=== PATIENT | male | born 1955 | race Two or more races ===

== ENCOUNTER 2017-04-03 18:54 | Inpatient (IN) | payer MEDICAID, OTHER ==
[~2017-04-03] VITALS: Ht 172.7 cm; Wt 81.2 kg
[2017-04-03 19:30] VITALS: BP 109/65
[2017-04-03 20:11] LABS: MEAN CORPUSCULAR HEMOGLOBIN 32.2 PG (27.0-31.0); MEAN CORPUSCULAR HGB CONC 33.7 G/DL (32.0-36.0); MEAN CORPUSCULAR VOLUME 95 FL (80-99); MEAN PLATELET VOLUME 9.6 FL (6.5-10.1); PLATELET COUNT 141 K/UL (150-450); RED CELL DISTRIBUTION WIDTH 12.5 % (11.6-14.8)
[2017-04-03] MEDS ORDERED: cefTRIAXone 1 GM in NS 55 ML IVPB ONE (20:30)
[2017-04-03 20:33] LABS: WHITE BLOOD COUNT 26.6 K/UL (4.8-10.8)
[2017-04-03 20:44] LABS: REFLEX LACTIC ACID YES OR NO YES
[2017-04-03] MEDS ORDERED: Vancomycin 1.5gm/D5W 250ml 250 ML IVPB ONE (21:00)
[2017-04-03 21:03] LABS: ALANINE AMINOTRANSFERASE 24 U/L (12-78); ALBUMIN/GLOBULIN RATIO 0.8 (1.0-2.7); ANION GAP 13 (5-15); ASPARTATE AMINO TRANSFERASE 44 U/L (15-37); CALCIUM 9.6 MG/DL (8.5-10.1); CARBON DIOXIDE 25 MMOL/L (21-32); CHLORIDE 94 MMOL/L (98-107); CKMB 5.5 NG/ML (0.0-3.6); GLOMERULAR FILTRATION RATE 21.2 mL/min (>60); LIPASE 83 U/L (73-393); POTASSIUM 3.3 MMOL/L (3.5-5.1); SODIUM 132 MMOL/L (136-145); TOTAL PROTEIN 7.9 G/DL (6.4-8.2)
[2017-04-03 21:24] LABS: BAND NEUTROPHILS % (MANUAL) 10 % (0-8); LYMPHOCYTES % (MANUAL) 5 % (20-45); NEUTROPHILS % (MANUAL) 78 % (45-75); TOTAL CELLS COUNTED 100
[2017-04-03 21:25] LABS: BASOPHILS % (MANUAL) 0 % (0-2); EOSINOPHILS % (MANUAL) 0 % (0-3); PLATELET ESTIMATE DECREASED; PLATELET MORPHOLOGY NORMAL; TOXIC GRANULATION 1+
[2017-04-03 21:30] VITALS: BP 102/70
[2017-04-03 21:44] LABS: APPEARANCE,URINE TURBID; KETONES,URINE 1+ (NEGATIVE); LEUKOCYTE ESTERASE ,URINE 3+ (NEGATIVE); NITRITE,URINE POSITIVE (NEGATIVE); PH,URINE 5 (4.5-8.0); PROTEIN,URINE 3+ (NEGATIVE); UROBILINOGEN,URINE 4 MG/DL (0.0-1.0)
[2017-04-03] MEDS ORDERED: Miralax 17gm pkt ORAL PRN (21:45)
[2017-04-03] MEDS ORDERED: Morphine Sulfate 2mg/ml Inj IVP PRN (21:45)
[2017-04-03] MEDS ORDERED: Albuterol/Ipratropium 3ml neb HHN PRN (21:45)
[2017-04-03] MEDS ORDERED: Nitroglycerin Subl 0.4mg tab SL PRN (21:45)
[2017-04-03 21:48] LABS: ICTOTEST POSITIVE
[2017-04-03 21:50] LABS: RBC,URINE TNTC /HPF (0 - 0); WBC,URINE TNTC /HPF (0 - 0)
[2017-04-03 21:51] LABS: BACTERIA,URINE MANY /HPF; SQUAMOUS EPITHELIAL CELL,UR FEW /LPF (NONE/OCC)
[2017-04-03 21:52] LABS: AMORPHOUS SEDIMENT,UR MANY /LPF
--- NOTE | 2017-04-03 22:10 | Emergency Room Report ---
History of Present Illness General Chief Complaint: Generalized Weakness Source: Family Member Present Illness HPI Patient presents with complaints of general weakness Patient's son reports that over the past few days the patient has been weaker than usual he noticed that his skin is becoming mottled he described it as essentially discolored Patient himself has had urinary problems including burning with urination Denies any chest pain They noticed that his breathing was also little bit fast and upon arrival the patient is hypotensive and tachycardic Denies any recent travel denies any vomiting or diarrhea denies any other back or flank pain Allergies: Coded Allergies: No Known Allergies (Unverified , 04/03/17) Patient History Past Medical History: see triage record Pertinent Family History: none Reviewed Nursing Documentation: PMH: Agreed, PSxH: Agreed Nursing Documentation-PMH Hx Hypertension: Yes Review of Systems All Other Systems: negative except mentioned in HPI Physical Exam Vital Signs Date Time Temp Pulse Resp B/P (MAP) Pulse Ox O2 Delivery O2 Flow Rate FiO2 04/03/17 19:06 97.3 78 16 88/54 96 Room Air Sp02 EP Interpretation: reviewed, normal General Appearance: mild distress Head: normocephalic, atraumatic Eyes: bilateral eye PERRL, bilateral eye EOMI ENT: hearing grossly normal, TMs + canals normal, uvula midline, dry mucus membranes Neck: full range of motion, supple, no meningismus, no bony tend Respiratory: lungs clear, normal breath sounds, no rhonchi, no respiratory distress, no retraction, no accessory muscle use Cardiovascular #1: normal peripheral pulses, regular rate, rhythm, no edema, no gallop, no JVD, no murmur Gastrointestinal: normal bowel sounds, non tender, soft, no mass, no organomegaly, non-distended, no guarding, no hernia, no pulsatile mass, no rebound Genitourinary: no CVA tenderness Neurologic: oriented x3, responsive, 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, motor strength/ tone normal, sensory intact Psychiatric: mood/affect normal Skin: other - Patient has a blotchy appearance to the skin mottled in appearance Lymphatic: normal inspection, no adenopathy Procedures Critical Care Time Critical Care Time 45 minutes for multiple re\re evaluations initial critical presentation concerning for acute respiratory/left any presentation multiple re\re evaluations not including any procedural time,, Medical Decision Making Diagnostic Impression: Primary Impression: Severe sepsis Additional Impressions: UTI (urinary tract infection) Elevated troponin ER Course Patient concerning upon arrival sepsis severe sepsis, UTI Meningitis cardiac pathology all entertained Patient initiated on aggressive IV hydration Broad-spectrum antibiotic provided Urine sample did show infectious pathology CT imaging also shows inflammation around the bladder There is an aneurysm however no obvious signs of leak Patient is extremely concerning and admitted to monitored bed for further care , , Labs Test 04/03/17 19:40 04/03/17 21:00 04/03/17 21:10 White Blood Count 26.6 K/UL (4.8-10.8) Red Blood Count 5.20 M/UL (4.70-6.10) Hemoglobin 16.7 G/DL (14.2-18.0) Hematocrit 49.6 % (42.0-52.0) Mean Corpuscular Volume 95 FL (80-99) Mean Corpuscular Hemoglobin 32.2 PG (27.0-31.0) Mean Corpuscular Hemoglobin Concent 33.7 G/DL (32.0-36.0) Red Cell Distribution Width 12.5 % (11.6-14.8) Platelet Count 141 K/UL (150-450) Mean Platelet Volume 9.6 FL (6.5-10.1) Neutrophils (%) (Auto) % (45.0-75.0) Lymphocytes (%) (Auto) % (20.0-45.0) Monocytes (%) (Auto) % (1.0-10.0) Eosinophils (%) (Auto) % (0.0-3.0) Basophils (%) (Auto) % (0.0-2.0) Differential Total Cells Counted 100 Neutrophils % (Manual) 78 % (45-75) Lymphocytes % (Manual) 5 % (20-45) Monocytes % (Manual) 7 % (1-10) Eosinophils % (Manual) 0 % (0-3) Basophils % (Manual) 0 % (0-2) Band Neutrophils 10 % (0-8) Toxic Granulation 1+ Platelet Estimate Decreased Platelet Morphology Normal Red Blood Cell Morphology Normal Sodium Level 132 MMOL/L (136-145) Potassium Level 3.3 MMOL/L (3.5-5.1) Chloride Level 94 MMOL/L (98-107) Carbon Dioxide Level 25 MMOL/L (21-32) Anion Gap 13 (5-15) Blood Urea Nitrogen 34 mg/dL (7-18) Creatinine 3.0 MG/DL (0.55-1.30) Estimat Glomerular Filtration Rate 21.2 mL/min (>60) Glucose Level 167 MG/DL (74-106) Lactic Acid Level 3.90 mmol/L (0.66-2.22) 2.70 mmol/L (0.66-2.22) Calcium Level 9.6 MG/DL (8.5-10.1) Total Bilirubin 0.8 MG/DL (0.2-1.0) Aspartate Amino Transf (AST/SGOT) 44 U/L (15-37) Alanine Aminotransferase (ALT/SGPT) 24 U/L (12-78) Alkaline Phosphatase 78 U/L (46-116) Total Creatine Kinase > 1000 U/L (26-308) Creatine Kinase MB 5.5 NG/ML (0.0-3.6) Creatine Kinase MB Relative Index 0.0 Troponin I 0.431 ng/mL (0.000-0.056) Pro-B-Type Natriuretic Peptide 8579 (0-125) Total Protein 7.9 G/DL (6.4-8.2) Albumin 3.4 G/DL (3.4-5.0) Globulin 4.5 g/dL Albumin/Globulin Ratio 0.8 (1.0-2.7) Lipase 83 U/L (73-393) Urine Color Brown Urine Appearance Turbid Urine pH 5 (4.5-8.0) Urine Specific [place] 1.020 (1.005-1.035) Urine Protein 3+ (NEGATIVE) Urine Glucose (UA) 1+ (NEGATIVE) Urine Ketones 1+ (NEGATIVE) Urine Occult Blood 5+ (NEGATIVE) Urine Nitrite Positive (NEGATIVE) Urine Bilirubin 2+ (NEGATIVE) Urine Ictotest Positive Urine Urobilinogen 4 MG/DL (0.0-1.0) Urine Leukocyte Esterase 3+ (NEGATIVE) Urine RBC Tntc /HPF (0 - 0) Urine WBC Tntc /HPF (0 - 0) Urine Squamous Epithelial Cells Few /LPF (NONE/OCC) Urine Amorphous Sediment Many /LPF (NONE) Urine Bacteria Many /HPF (NONE) EKG Diagnostic Results Rate: normal Rhythm: NSR ST Segments: no acute changes Rhythm Strip Diag. Results EP Interpretation: yes Rate: 78 Rhythm: NSR, no PVC's, no ectopy Chest X-Ray Diagnostic Results Chest X-Ray Diagnostic Results : Chest X-Ray Ordered: Yes # of Views/Limited/Complete: 1 View Indication: Chest Pain EP Interpretation: Yes Interpretation: no consolidation, no effusion, no pneumothorax Impression: No acute disease CT/MRI/US Diagnostic Results CT/MRI/US Diagnostic Results : Impression ct abd/pelvis:Impression: 6.1 x 5.6 cm fusiform abdominal aortic aneurysm. No evidence of rupture or leakage. Thickwalled bladder, prominent seminal vesicles, and prominent prostate with surrounding inflammatory change. Findings are suspicious for cystitis, possible prostatitis, and inflammation of the seminal vesicles. Gas bubbles within the bladder, raises concern for emphysematous cystitis. Alternatively, this could be due to recent instrumentation. Correlate with clinical history Lower pole renal cyst. Exiting subcentimeter low-attenuation renal lesion too small to characterize. No further followup necessary Other findings as noted, including equivocal sliding-type small hiatal hernia, posterior dependent pulmonary atelectatic changes and subpleural blebs This agrees with the preliminary interpretation provided overnight by Dr. Mendoza Last Vital Signs Date Time Temp Pulse Resp B/P (MAP) Pulse Ox O2 Delivery O2 Flow Rate FiO2 04/03/17 19:30 97.3 91 23 109/65 100 Room Air Status: improved Disposition: ADMITTED INPATIENT Condition: Critical Referrals: [employer] [facility] (PCP) JAZZ DAVIS D.O. Apr 03, 2017 22:10
[2017-04-03 22:45] VITALS: BP 114/77
[2017-04-03 23:30] VITALS: BP 124/79
[2017-04-04 01:43] LABS: MAGNESIUM 1.4 MG/DL (1.5-2.4); URIC ACID 6.6 MG/DL (2.6-7.2)
[2017-04-04 02:34] LABS: PHOSPHORUS 4.2 MG/DL (2.5-4.9)
[2017-04-04 02:43] LABS: OSMOLALITY SERUM 296 mOsm/kg (297-317)
[2017-04-04 04:00] VITALS: BP 138/78
[2017-04-04] MEDS ORDERED: COREG6.25 MG ORAL (06:35)
[2017-04-04] MEDS ORDERED: LOSARTAN POTAS100 MG ORAL (06:35)
[2017-04-04 08:25] LABS: MEAN CORPUSCULAR HEMOGLOBIN 33.1 PG (27.0-31.0); MEAN CORPUSCULAR HGB CONC 35.4 G/DL (32.0-36.0); MEAN CORPUSCULAR VOLUME 93 FL (80-99); MEAN PLATELET VOLUME 10.3 FL (6.5-10.1); PLATELET COUNT 114 K/UL (150-450); RED BLOOD COUNT 4.33 M/UL (4.70-6.10); RED CELL DISTRIBUTION WIDTH 12.4 % (11.6-14.8); WHITE BLOOD COUNT 16.3 K/UL (4.8-10.8)
[2017-04-04 08:30] VITALS: BP 142/87
[2017-04-04] MEDS ORDERED: Cefepime HCl 2 GM in D5W 110 ML IV SCH (09:00)
[2017-04-04] MEDS: Heparin 5000 units/ml inj SUBQ SCH ×2 (09:00→21:00)
[2017-04-04 09:09] LABS: ALANINE AMINOTRANSFERASE 20 U/L (12-78); ALBUMIN/GLOBULIN RATIO 0.7 (1.0-2.7); ANION GAP 12 (5-15); ASPARTATE AMINO TRANSFERASE 62 U/L (15-37); CALCIUM 7.7 MG/DL (8.5-10.1); CARBON DIOXIDE 21 MMOL/L (21-32); CHLORIDE 99 MMOL/L (98-107); CREATININE 1.6 MG/DL (0.55-1.30); GLOMERULAR FILTRATION RATE 43.9 mL/min (>60); POTASSIUM 2.9 MMOL/L (3.5-5.1); SODIUM 132 MMOL/L (136-145); TOTAL PROTEIN 6.1 G/DL (6.4-8.2)
--- NOTE | 2017-04-04 09:09 | Diagnostic Imaging Report ---
Indication: Abdominal pain Technique: Spiral acquisitions obtained through the abdomen and pelvis. No oral contrast utilized, per emergency room physician request No IV contrast utilized, per referring physician request.. Multiplanar reconstructions were generated. Total dose length product 75 mGycm. CTDIvol(s) 14 mGy. Dose reduction achieved using automated exposure control Comparison: None Findings: There is a fusiform abdominal aortic aneurysm. This measures is 6.1 cm transverse by 5.6 cm AP by 8.8 cm in length. It demonstrates some mural calcification. It demonstrates a 17 mm long neck. There is no evidence of rupture or leakage. The aneurysm terminates just above the aortic bifurcation. The common iliac arteries are ectatic but not frankly aneurysmal. Patency is indeterminate in the absence of IV contrast. The bladder demonstrates wall thickening. 2 tiny gas bubbles are seen within the bladder There is considerable infiltration of the fat surrounding the bladder and the seminal vesicles and to lesser extent the prostate. The seminal vesicles are somewhat prominent. The prostate is enlarged, measuring 5 cm transverse by 4.7 cm AP. Lack of IV contrast limits assessment of the solid organs. The liver, gallbladder, bile ducts, pancreas, spleen, adrenals, right kidney are unremarkable. The left kidney demonstrates a 2.9 cm lower pole cyst. There is also a left exophytic subcentimeter low-attenuation renal lesion which is too small to characterize in the interpolar region. There are abundant prominent but not frankly enlarged retroperitoneal lymph nodes. No pelvic mass or adenopathy. No evidence of diverticulosis or diverticulitis is demonstrated. The appendix is normal. No small bowel distention. No free or loculated intraperitoneal air or fluid is evident. There is equivocally a small sliding-type hiatal hernia. The stomach and duodenum are unremarkable. The lung bases demonstrate posterior dependent atelectatic changes and small subpleural blebs. The bones are unremarkable. Impression: 6.1 x 5.6 cm fusiform abdominal aortic aneurysm. No evidence of rupture or leakage. Thickwalled bladder, prominent seminal vesicles, and prominent prostate with surrounding inflammatory change. Findings are suspicious for cystitis, possible prostatitis, and inflammation of the seminal vesicles. Gas bubbles within the bladder, raises concern for emphysematous cystitis. Alternatively, this could be due to recent instrumentation. Correlate with clinical history Lower pole renal cyst. Exiting subcentimeter low-attenuation renal lesion too small to characterize. No further followup necessary Other findings as noted, including equivocal sliding-type small hiatal hernia, posterior dependent pulmonary atelectatic changes and subpleural blebs This agrees with the preliminary interpretation provided overnight by Dr. Mendoza The CT scanner at [facility] is accredited by the [employer] and the scans are performed using protocols designed to limit radiation exposure to as low as reasonably achievable to attain images of sufficient resolution adequate for diagnostic evaluation.
[2017-04-04 10:10] LABS: BAND NEUTROPHILS % (MANUAL) 9 % (0-8); BASOPHILS % (MANUAL) 0 % (0-2); EOSINOPHILS % (MANUAL) 0 % (0-3); LYMPHOCYTES % (MANUAL) 7 % (20-45); NEUTROPHILS % (MANUAL) 81 % (45-75); PLATELET ESTIMATE ADEQUATE; PLATELET MORPHOLOGY NORMAL; TOTAL CELLS COUNTED 100
--- NOTE | 2017-04-04 10:55 | Diagnostic Imaging Report ---
Indication: Chest pain Technique: One view of the chest Comparison: none Findings: Lungs and pleural spaces are clear. Heart size is normal. The aorta is somewhat tortuous Impression: No acute process
--- NOTE | 2017-04-04 11:24 | Consultation ---
History of Present Illness General Date patient seen: Apr 04, 2017 Time patient seen: 11:23 Chief Complaint: Generalized Weakness Reason for Consultation: UTI, sepsis Present Illness HPI ID Consult Note 61 y/o M with xh of HTN presents to ED on 04/03 with 2-3 days of fever, feeling unwell, Dysuria, bowel abnormalities (Constipation/diarrhea), SOB and difficulty urinating. Per son, no hx of prior UTIs or recent urologic procedures , no recent abx. Afebrile upon admission but now febrile to 101.5. Leukocytosis up to 26.6 upon admission, now down to 16. BP stable. U/a with significant pyuria. CT abd/p with finding of cystitis, prostatitis and possible emphysematous cystitis. Started on IV Vanco and Cefepime. Patient is singaporean speaking; obtain hx from son at bedside. Denies cough, DIAZ, rash, n/v. Allergies: Coded Allergies: No Known Allergies (Unverified , 04/03/17) Medication History Scheduled Carvedilol (Coreg), 6.25 MG ORAL DAILY, (Reported) Losartan Potassium (Losartan Potassium), Unknown Dose ORAL DAILY, (Reported) Patient History Healthcare decision maker Resuscitation status Full Code Advanced Directive on File Patient History Narrative PMHx: as above SHx: no contributory FHx: non contributory Review of Systems All Other Systems: negative except mentioned in HPI Physical Exam Physical Exam Narrative General Appearance: ill appearing but not toxic looking Lines, tubes and drains: peripheral HEENT: normocephalic, atraumatic, no oral lesions, PERRL Neck: supple Respiratory/Chest: chest wall non-tender, lungs clear Abdomen: normal bowel sounds, S+D, NT, ND, No CVA tenderness Skin: clammy and hot, no rash Last 24 Hour Vital Signs Date Time Temp Pulse Resp B/P (MAP) Pulse Ox O2 Delivery O2 Flow Rate FiO2 04/04/17 08:30 97.7 108 18 142/87 96 Room Air 04/04/17 04:00 98.2 94 20 138/78 97 Room Air 04/04/17 04:00 92 04/04/17 00:00 93 04/03/17 23:30 97.2 94 21 124/79 98 Room Air 04/03/17 23:30 96 04/03/17 23:20 97.3 90 22 114/77 99 Room Air 04/03/17 22:45 97.3 90 22 114/77 99 Room Air 04/03/17 21:30 97.3 89 25 102/70 100 Room Air 04/03/17 19:30 97.3 91 23 109/65 100 Room Air 04/03/17 19:06 97.3 78 16 88/54 96 Room Air Intake and Output 04/04/17 04/05/17 19:00 07:00 Intake Total 100 ml Balance 100 ml Intake IV Total 100 ml Laboratory Tests Test 04/03/17 19:40 04/03/17 21:00 04/03/17 21:10 04/04/17 07:30 White Blood Count 26.6 K/UL (4.8-10.8) *H 16.3 K/UL (4.8-10.8) H Red Blood Count 5.20 M/UL (4.70-6.10) 4.33 M/UL (4.70-6.10) L Hemoglobin 16.7 G/DL (14.2-18.0) 14.3 G/DL (14.2-18.0) Hematocrit 49.6 % (42.0-52.0) 40.4 % (42.0-52.0) L Mean Corpuscular Volume 95 FL (80-99) 93 FL (80-99) Mean Corpuscular Hemoglobin 32.2 PG (27.0-31.0) H 33.1 PG (27.0-31.0) H Mean Corpuscular Hemoglobin Concent 33.7 G/DL (32.0-36.0) 35.4 G/DL (32.0-36.0) Red Cell Distribution Width 12.5 % (11.6-14.8) 12.4 % (11.6-14.8) Platelet Count 141 K/UL (150-450) L 114 K/UL (150-450) L Mean Platelet Volume 9.6 FL (6.5-10.1) 10.3 FL (6.5-10.1) H Neutrophils (%) (Auto) % (45.0-75.0) % (45.0-75.0) Lymphocytes (%) (Auto) % (20.0-45.0) % (20.0-45.0) Monocytes (%) (Auto) % (1.0-10.0) % (1.0-10.0) Eosinophils (%) (Auto) % (0.0-3.0) % (0.0-3.0) Basophils (%) (Auto) % (0.0-2.0) % (0.0-2.0) Differential Total Cells Counted 100 100 Neutrophils % (Manual) 78 % (45-75) H 81 % (45-75) H Lymphocytes % (Manual) 5 % (20-45) L 7 % (20-45) L Monocytes % (Manual) 7 % (1-10) 3 % (1-10) Eosinophils % (Manual) 0 % (0-3) 0 % (0-3) Basophils % (Manual) 0 % (0-2) 0 % (0-2) Band Neutrophils 10 % (0-8) H 9 % (0-8) H Toxic Granulation 1+ Platelet Estimate Decreased L Adequate Platelet Morphology Normal Normal Red Blood Cell Morphology Normal Normal Sodium Level 132 MMOL/L (136-145) L 132 MMOL/L (136-145) L Potassium Level 3.3 MMOL/L (3.5-5.1) L 2.9 MMOL/L (3.5-5.1) L Chloride Level 94 MMOL/L (98-107) L 99 MMOL/L (98-107) Carbon Dioxide Level 25 MMOL/L (21-32) 21 MMOL/L (21-32) Anion Gap 13 (5-15) 12 (5-15) Blood Urea Nitrogen 34 mg/dL (7-18) H 31 mg/dL (7-18) H Creatinine 3.0 MG/DL (0.55-1.30) H 1.6 MG/DL (0.55-1.30) H Estimat Glomerular Filtration Rate 21.2 mL/min (>60) 43.9 mL/min (>60) Glucose Level 167 MG/DL (74-106) H 106 MG/DL (74-106) Osmolality 296 mOsm/kg (297-317) L Lactic Acid Level 3.90 mmol/L (0.66-2.22) H 2.70 mmol/L (0.66-2.22) H Uric Acid 6.6 MG/DL (2.6-7.2) Calcium Level 9.6 MG/DL (8.5-10.1) 7.7 MG/DL (8.5-10.1) L Phosphorus Level 4.2 MG/DL (2.5-4.9) Magnesium Level 1.4 MG/DL (1.5-2.4) L Total Bilirubin 0.8 MG/DL (0.2-1.0) 0.5 MG/DL (0.2-1.0) Aspartate Amino Transf (AST/SGOT) 44 U/L (15-37) H 62 U/L (15-37) H Alanine Aminotransferase (ALT/SGPT) 24 U/L (12-78) 20 U/L (12-78) Alkaline Phosphatase 78 U/L (46-116) 64 U/L (46-116) Total Creatine Kinase 1494 U/L (26-308) H Creatine Kinase MB 5.5 NG/ML (0.0-3.6) H Creatine Kinase MB Relative Index 0.0 Troponin I 0.431 ng/mL (0.000-0.056) Pro-B-Type Natriuretic Peptide 8579 (0-125) H Total Protein 7.9 G/DL (6.4-8.2) 6.1 G/DL (6.4-8.2) L Albumin 3.4 G/DL (3.4-5.0) 2.6 G/DL (3.4-5.0) L Globulin 4.5 g/dL 3.5 g/dL Albumin/Globulin Ratio 0.8 (1.0-2.7) L 0.7 (1.0-2.7) L Lipase 83 U/L (73-393) Free Thyroxine 1.47 NG/DL (0.10-1.46) H Urine Color Brown Urine Appearance Turbid Urine pH 5 (4.5-8.0) Urine Specific [place] 1.020 (1.005-1.035) Urine Protein 3+ (NEGATIVE) H Urine Glucose (UA) 1+ (NEGATIVE) H Urine Ketones 1+ (NEGATIVE) H Urine Occult Blood 5+ (NEGATIVE) H Urine Nitrite Positive (NEGATIVE) H Urine Bilirubin 2+ (NEGATIVE) H Urine Ictotest Positive Urine Urobilinogen 4 MG/DL (0.0-1.0) H Urine Leukocyte Esterase 3+ (NEGATIVE) H Urine RBC Tntc /HPF (0 - 0) H Urine WBC Tntc /HPF (0 - 0) H Urine Squamous Epithelial Cells Few /LPF (NONE/OCC) Urine Amorphous Sediment Many /LPF (NONE) H Urine Bacteria Many /HPF (NONE) H Urine Eosinophils None seen Urine Osmolality 384 mOsm/kg (429-449) L Urine Random Sodium 15 MEQ/L (20-110) L Urine Random Chloride 31 mmol/L (55-125) L Urine Potassium Timed 92 mmol/L (12-62) H reviewed Height (Feet): 5 Height (Inches): 8.00 Weight (Pounds): 179 Medications Current Medications Medications (Trade) Dose Ordered Sig/Howard Route PRN Reason Start Time Stop Time Status Last Admin Dose Admin Acetaminophen (Tylenol) 650 mg Q4H PRN ORAL fever 04/03/17 21:45 05/03/17 21:44 Albuterol/ Ipratropium (DuoNeb 0.5-3(2.5)mg/3ml) 3 ml Q4H PRN HHN Shortness of Breath 04/03/17 21:45 04/08/17 21:44 Cefepime HCl 2 gm/ Dextrose 110 ml @ 220 mls/hr Q24H IV 04/04/17 09:00 04/11/17 08:59 04/04/17 10:28 Dextrose (Dextrose 50%) STAT PRN IV Hypoglycemia 04/03/17 21:45 05/03/17 21:44 Heparin Sodium (Porcine) (Heparin 5000 units/ml) 5,000 units EVERY 12 HOURS SUBQ 04/04/17 09:00 05/04/17 08:59 Magnesium Sulfate 100 ml @ 100 mls/hr Q1H IVPB 04/04/17 10:45 04/04/17 13:44 04/04/17 11:00 Morphine Sulfate (Morphine Sulfate) 2 mg Q4H PRN IVP Moderate Pain (Pain Scale 4-6) 04/03/17 21:45 04/10/17 21:44 Nitroglycerin (Ntg) 0.4 mg Every 5 Minutes PRN SL Prn Chest Pain 04/03/17 21:45 05/03/17 21:44 Ondansetron HCl (Zofran) 4 mg Q6H PRN IVP Nausea & Vomiting 04/03/17 21:45 05/03/17 21:44 Polyethylene Glycol (Miralax) 17 gm DAILYPRN PRN ORAL Constipation 04/03/17 21:45 05/03/17 21:44 Potassium Chloride (K-Dur) 40 meq ONCE ONCE ORAL 04/04/17 11:30 04/04/17 11:31 Sodium Chloride 1,000 ml @ 100 mls/hr Q10H IVLG 04/04/17 00:21 05/04/17 00:20 04/04/17 11:05 Temazepam (Restoril) 15 mg HSPRN PRN ORAL Insomnia 04/03/17 21:45 04/10/17 21:44 Vancomycin HCl (Vanco rx to dose) 1 ea DAILY PRN MISC PRN RX PROTOCOL 04/03/17 22:15 05/03/17 22:14 Vancomycin HCl 1 gm/Dextrose 275 ml @ 183.3 mls/ hr Q24H IVPB 04/04/17 21:00 04/09/17 20:59 Assessment/Plan Assessment/Plan Abx: IV Vanco 04/03- IV Ceftriaxone x1 04/03 Cefepime 04/04- Assesment: Severe Sepsis 2ry to UTI and possible prostatitis; ? emphysematous cystitis mild hypotension- improved with fluids -U/a significant pyuria (WBC TNTC), nit +, leuk +3; Ucx pending -Bcx pending -CT abd/p: 6.1 x 5.6 cm fusiform abdominal aortic aneurysm. No evidence of rupture or leakage. Thick walled bladder, prominent seminal vesicles, and prominent prostate with surrounding inflammatory change. Findings are suspicious for cystitis, possible prostatitis, and inflammation of the seminal vesicles. Gas bubbles within the bladder, raises concern for emphysematous cystitis. Lower pole renal cyst. Exiting subcentimeter low-attenuation renal lesion too small to characterize. No further followup necessary -CXR no acute process Fever/Leukocytosis- 2ry to above; improving Thrombocytopenia, worsening- 2ry to sepsis Mild AST elevation, worsening HILARIO, improving Lactic acidosis, improving Plan: -Switch Cefepime to IV Zosyn given findings of possible emphysematous cystitis -if further fevers, HD decompensation, switch to Meropenem for broader abx coverage -Urology evaluation given CT findings and ? emphysematous cystitis -Will continue IV Vancomycin for the next 24-48hrs pending Bcx -f/u cx -Monitor CBC/BMP, temperatures Discussed with RN and Dr Esquivel. Shona Jamison M.D. Apr 04, 2017 11:24
[2017-04-04 11:38] VITALS: BP 144/87
--- NOTE | 2017-04-04 13:17 | History and Physical ---
History of Present Illness General Date patient seen: Apr 03, 2017 Reason for Hospitalization: Generalized Weakness Present Illness HPI 61 year old male with hx of HTN came from home brought by son c/o fever for 2x days, right leg numbness, and difficulty urinating. Patient AOx4, VSS, ambulatory with steady gait, no s/s of resp distress noted at this time. Patient is burmese speaking. Son at the bed site helps with translation. Pt was diagnosed to have sepsis and admitted to telemetry for further management. Allergies: Coded Allergies: No Known Allergies (Unverified , 04/03/17) Medication History Scheduled Carvedilol (Coreg), 6.25 MG ORAL DAILY, (Reported) Losartan Potassium (Losartan Potassium), Unknown Dose ORAL DAILY, (Reported) Patient History Healthcare decision maker Resuscitation status Full Code Advanced Directive on File Review of Systems All Other Systems: negative except mentioned in HPI Physical Exam General Appearance: WD/WN Lines, tubes and drains: peripheral HEENT: normocephalic, atraumatic Neck: non-tender, normal alignment Respiratory/Chest: chest wall non-tender, lungs clear Abdomen: normal bowel sounds Genitourinary/Rectal: normal genital exam Last 24 Hour Vital Signs Date Time Temp Pulse Resp B/P (MAP) Pulse Ox O2 Delivery O2 Flow Rate FiO2 04/04/17 11:38 101.5 122 22 144/87 94 Room Air 04/04/17 08:30 97.7 108 18 142/87 96 Room Air 04/04/17 04:00 98.2 94 20 138/78 97 Room Air 04/04/17 04:00 92 04/04/17 00:00 93 04/03/17 23:30 97.2 94 21 124/79 98 Room Air 04/03/17 23:30 96 04/03/17 23:20 97.3 90 22 114/77 99 Room Air 04/03/17 22:45 97.3 90 22 114/77 99 Room Air 04/03/17 21:30 97.3 89 25 102/70 100 Room Air 04/03/17 19:30 97.3 91 23 109/65 100 Room Air 04/03/17 19:06 97.3 78 16 88/54 96 Room Air Intake and Output 04/04/17 04/05/17 19:00 07:00 Intake Total 100 ml Balance 100 ml Intake IV Total 100 ml Laboratory Tests Test 04/03/17 19:40 04/03/17 21:00 04/03/17 21:10 04/04/17 07:30 White Blood Count 26.6 K/UL (4.8-10.8) *H 16.3 K/UL (4.8-10.8) H Red Blood Count 5.20 M/UL (4.70-6.10) 4.33 M/UL (4.70-6.10) L Hemoglobin 16.7 G/DL (14.2-18.0) 14.3 G/DL (14.2-18.0) Hematocrit 49.6 % (42.0-52.0) 40.4 % (42.0-52.0) L Mean Corpuscular Volume 95 FL (80-99) 93 FL (80-99) Mean Corpuscular Hemoglobin 32.2 PG (27.0-31.0) H 33.1 PG (27.0-31.0) H Mean Corpuscular Hemoglobin Concent 33.7 G/DL (32.0-36.0) 35.4 G/DL (32.0-36.0) Red Cell Distribution Width 12.5 % (11.6-14.8) 12.4 % (11.6-14.8) Platelet Count 141 K/UL (150-450) L 114 K/UL (150-450) L Mean Platelet Volume 9.6 FL (6.5-10.1) 10.3 FL (6.5-10.1) H Neutrophils (%) (Auto) % (45.0-75.0) % (45.0-75.0) Lymphocytes (%) (Auto) % (20.0-45.0) % (20.0-45.0) Monocytes (%) (Auto) % (1.0-10.0) % (1.0-10.0) Eosinophils (%) (Auto) % (0.0-3.0) % (0.0-3.0) Basophils (%) (Auto) % (0.0-2.0) % (0.0-2.0) Differential Total Cells Counted 100 100 Neutrophils % (Manual) 78 % (45-75) H 81 % (45-75) H Lymphocytes % (Manual) 5 % (20-45) L 7 % (20-45) L Monocytes % (Manual) 7 % (1-10) 3 % (1-10) Eosinophils % (Manual) 0 % (0-3) 0 % (0-3) Basophils % (Manual) 0 % (0-2) 0 % (0-2) Band Neutrophils 10 % (0-8) H 9 % (0-8) H Toxic Granulation 1+ Platelet Estimate Decreased L Adequate Platelet Morphology Normal Normal Red Blood Cell Morphology Normal Normal Sodium Level 132 MMOL/L (136-145) L 132 MMOL/L (136-145) L Potassium Level 3.3 MMOL/L (3.5-5.1) L 2.9 MMOL/L (3.5-5.1) L Chloride Level 94 MMOL/L (98-107) L 99 MMOL/L (98-107) Carbon Dioxide Level 25 MMOL/L (21-32) 21 MMOL/L (21-32) Anion Gap 13 (5-15) 12 (5-15) Blood Urea Nitrogen 34 mg/dL (7-18) H 31 mg/dL (7-18) H Creatinine 3.0 MG/DL (0.55-1.30) H 1.6 MG/DL (0.55-1.30) H Estimat Glomerular Filtration Rate 21.2 mL/min (>60) 43.9 mL/min (>60) Glucose Level 167 MG/DL (74-106) H 106 MG/DL (74-106) Osmolality 296 mOsm/kg (297-317) L Lactic Acid Level 3.90 mmol/L (0.66-2.22) H 2.70 mmol/L (0.66-2.22) H Uric Acid 6.6 MG/DL (2.6-7.2) Calcium Level 9.6 MG/DL (8.5-10.1) 7.7 MG/DL (8.5-10.1) L Phosphorus Level 4.2 MG/DL (2.5-4.9) Magnesium Level 1.4 MG/DL (1.5-2.4) L Total Bilirubin 0.8 MG/DL (0.2-1.0) 0.5 MG/DL (0.2-1.0) Aspartate Amino Transf (AST/SGOT) 44 U/L (15-37) H 62 U/L (15-37) H Alanine Aminotransferase (ALT/SGPT) 24 U/L (12-78) 20 U/L (12-78) Alkaline Phosphatase 78 U/L (46-116) 64 U/L (46-116) Total Creatine Kinase 1494 U/L (26-308) H Creatine Kinase MB 5.5 NG/ML (0.0-3.6) H Creatine Kinase MB Relative Index 0.0 Troponin I 0.431 ng/mL (0.000-0.056) Pro-B-Type Natriuretic Peptide 8579 (0-125) H Total Protein 7.9 G/DL (6.4-8.2) 6.1 G/DL (6.4-8.2) L Albumin 3.4 G/DL (3.4-5.0) 2.6 G/DL (3.4-5.0) L Globulin 4.5 g/dL 3.5 g/dL Albumin/Globulin Ratio 0.8 (1.0-2.7) L 0.7 (1.0-2.7) L Lipase 83 U/L (73-393) Free Thyroxine 1.47 NG/DL (0.10-1.46) H Urine Color Brown Urine Appearance Turbid Urine pH 5 (4.5-8.0) Urine Specific [place] 1.020 (1.005-1.035) Urine Protein 3+ (NEGATIVE) H Urine Glucose (UA) 1+ (NEGATIVE) H Urine Ketones 1+ (NEGATIVE) H Urine Occult Blood 5+ (NEGATIVE) H Urine Nitrite Positive (NEGATIVE) H Urine Bilirubin 2+ (NEGATIVE) H Urine Ictotest Positive Urine Urobilinogen 4 MG/DL (0.0-1.0) H Urine Leukocyte Esterase 3+ (NEGATIVE) H Urine RBC Tntc /HPF (0 - 0) H Urine WBC Tntc /HPF (0 - 0) H Urine Squamous Epithelial Cells Few /LPF (NONE/OCC) Urine Amorphous Sediment Many /LPF (NONE) H Urine Bacteria Many /HPF (NONE) H Urine Eosinophils None seen Urine Osmolality 384 mOsm/kg (429-449) L Urine Random Sodium 15 MEQ/L (20-110) L Urine Random Chloride 31 mmol/L (55-125) L Urine Potassium Timed 92 mmol/L (12-62) H Height (Feet): 5 Height (Inches): 8.00 Weight (Pounds): 179 Medications Current Medications Medications (Trade) Dose Ordered Sig/Howard Route PRN Reason Start Time Stop Time Status Last Admin Dose Admin Acetaminophen (Tylenol) 650 mg Q4H PRN ORAL fever 04/03/17 21:45 05/03/17 21:44 04/04/17 11:25 Albuterol/ Ipratropium (DuoNeb 0.5-3(2.5)mg/3ml) 3 ml Q4H PRN HHN Shortness of Breath 04/03/17 21:45 04/08/17 21:44 Cefepime HCl 2 gm/ Dextrose 110 ml @ 220 mls/hr Q24H IV 04/04/17 09:00 04/11/17 08:59 Future Hold 04/04/17 10:28 Dextrose (Dextrose 50%) STAT PRN IV Hypoglycemia 04/03/17 21:45 05/03/17 21:44 Heparin Sodium (Porcine) (Heparin 5000 units/ml) 5,000 units EVERY 12 HOURS SUBQ 04/04/17 09:00 05/04/17 08:59 Magnesium Sulfate 100 ml @ 100 mls/hr Q1H IVPB 04/04/17 10:45 04/04/17 13:44 04/04/17 12:14 Metronidazole 100 ml @ 100 mls/hr ONCE ONCE IVPB 04/04/17 12:30 04/04/17 13:29 Morphine Sulfate (Morphine Sulfate) 2 mg Q4H PRN IVP Moderate Pain (Pain Scale 4-6) 04/03/17 21:45 04/10/17 21:44 Nitroglycerin (Ntg) 0.4 mg Every 5 Minutes PRN SL Prn Chest Pain 04/03/17 21:45 05/03/17 21:44 Ondansetron HCl (Zofran) 4 mg Q6H PRN IVP Nausea & Vomiting 04/03/17 21:45 05/03/17 21:44 Piperacillin Sod/ Tazobactam Sod 3.375 gm/Dextrose 110 ml @ 27.5 mls/hr Q8HR@0200,1000,1800 IVPB 04/04/17 18:00 04/11/17 17:59 Polyethylene Glycol (Miralax) 17 gm DAILYPRN PRN ORAL Constipation 04/03/17 21:45 05/03/17 21:44 Sodium Chloride 1,000 ml @ 100 mls/hr Q10H IVLG 04/04/17 00:21 05/04/17 00:20 04/04/17 11:05 Temazepam (Restoril) 15 mg HSPRN PRN ORAL Insomnia 04/03/17 21:45 04/10/17 21:44 Vancomycin HCl (Vanco rx to dose) 1 ea DAILY PRN MISC PRN RX PROTOCOL 04/03/17 22:15 05/03/17 22:14 Vancomycin HCl 1 gm/Dextrose 275 ml @ 183.3 mls/ hr Q24H IVPB 04/04/17 21:00 04/09/17 20:59 Assessment/Plan Problem List: (1) Severe sepsis ICD Codes: A41.9 - Sepsis, unspecified organism; R65.20 - Severe sepsis without septic shock SNOMED: 17282623 (2) UTI (urinary tract infection) ICD Codes: N39.0 - Urinary tract infection, site not specified SNOMED: 07377171, 636398490 (3) Elevated troponin ICD Codes: R74.8 - Abnormal levels of other serum enzymes; R65.20 - Severe sepsis without septic shock SNOMED: 067629736, 819318236 Assessment/Plan IV abx aden culture cardio to see symptomatic treatment. ANAID GRIMALDO Apr 04, 2017 13:17
--- NOTE | 2017-04-04 13:18 | Pulmonology Progress Note ---
Assessment/Plan Problems: (1) Severe sepsis (2) UTI (urinary tract infection) (3) Elevated troponin Assessment/Plan wbc lower check cultures CT abdomen reviewed, Urology called cardio and vascular to see. Subjective ROS Limited/Unobtainable: No Interval Events: feeling better Constitutional: Reports: no symptoms HEENT: Repors: no symptoms Respiratory: Reports: no symptoms Allergies: Coded Allergies: No Known Allergies (Unverified , 04/03/17) Objective Last 24 Hour Vital Signs Date Time Temp Pulse Resp B/P (MAP) Pulse Ox O2 Delivery O2 Flow Rate FiO2 04/04/17 11:38 101.5 122 22 144/87 94 Room Air 04/04/17 08:30 97.7 108 18 142/87 96 Room Air 04/04/17 04:00 98.2 94 20 138/78 97 Room Air 04/04/17 04:00 92 04/04/17 00:00 93 04/03/17 23:30 97.2 94 21 124/79 98 Room Air 04/03/17 23:30 96 04/03/17 23:20 97.3 90 22 114/77 99 Room Air 04/03/17 22:45 97.3 90 22 114/77 99 Room Air 04/03/17 21:30 97.3 89 25 102/70 100 Room Air 04/03/17 19:30 97.3 91 23 109/65 100 Room Air 04/03/17 19:06 97.3 78 16 88/54 96 Room Air Intake and Output 04/04/17 04/05/17 19:00 07:00 Intake Total 100 ml Balance 100 ml Intake IV Total 100 ml General Appearance: WD/WN HEENT: normocephalic, atraumatic Respiratory/Chest: chest wall non-tender, lungs clear Cardiovascular: normal peripheral pulses, normal rate Abdomen: normal bowel sounds, soft, non tender Genitourinary: normal external genitalia Extremities: no clubbing Skin: no rash Laboratory Tests 04/03/17 19:40: White Blood Count 26.6*H, Red Blood Count 5.20, Hemoglobin 16.7, Hematocrit 49.6 , Mean Corpuscular Volume 95, Mean Corpuscular Hemoglobin 32.2H, Mean Corpuscular Hemoglobin Concent 33.7, Red Cell Distribution Width 12.5, Platelet Count 141L, Mean Platelet Volume 9.6, Neutrophils (%) (Auto) , Lymphocytes (%) ( Auto) , Monocytes (%) (Auto) , Eosinophils (%) (Auto) , Basophils (%) (Auto) , Differential Total Cells Counted 100, Neutrophils % (Manual) 78H, Lymphocytes % (Manual) 5L, Monocytes % (Manual) 7, Eosinophils % (Manual) 0, Basophils % ( Manual) 0, Band Neutrophils 10H, Toxic Granulation 1+, Platelet Estimate DecreasedL, Platelet Morphology Normal, Red Blood Cell Morphology Normal, Sodium Level 132L, Potassium Level 3.3L, Chloride Level 94L, Carbon Dioxide Level 25, Anion Gap 13, Blood Urea Nitrogen 34H, Creatinine 3.0H, Estimat Glomerular Filtration Rate 21.2, Glucose Level 167H, Osmolality 296L, Lactic Acid Level 3.90H, Uric Acid 6.6, Calcium Level 9.6, Phosphorus Level 4.2, Magnesium Level 1.4L, Total Bilirubin 0.8, Aspartate Amino Transf (AST/SGOT) 44H , Alanine Aminotransferase (ALT/SGPT) 24, Alkaline Phosphatase 78, Total Creatine Kinase 1494H, Creatine Kinase MB 5.5H, Creatine Kinase MB Relative Index 0.0, Troponin I 0.431H, Pro-B-Type Natriuretic Peptide 8579H, Total Protein 7.9, Albumin 3.4, Globulin 4.5, Albumin/Globulin Ratio 0.8L, Lipase 83, Free Thyroxine 1.47H 04/03/17 21:00: Lactic Acid Level 2.70H 04/03/17 21:10: Urine Color Brown, Urine Appearance Turbid, Urine pH 5, Urine Specific [place] 1.020, Urine Protein 3+H, Urine Glucose (UA) 1+H, Urine Ketones 1+H, Urine Occult Blood 5+H, Urine Nitrite PositiveH, Urine Bilirubin 2+H, Urine Ictotest Positive, Urine Urobilinogen 4H, Urine Leukocyte Esterase 3+H, Urine RBC TntcH, Urine WBC TntcH, Urine Squamous Epithelial Cells Few, Urine Amorphous Sediment ManyH, Urine Bacteria ManyH, Urine Eosinophils None seen, Urine Osmolality 384L , Urine Random Sodium 15L, Urine Random Chloride 31L, Urine Potassium Timed 92H 04/04/17 07:30: White Blood Count 16.3H, Red Blood Count 4.33L, Hemoglobin 14.3, Hematocrit 40.4L, Mean Corpuscular Volume 93, Mean Corpuscular Hemoglobin 33.1H, Mean Corpuscular Hemoglobin Concent 35.4, Red Cell Distribution Width 12.4, Platelet Count 114L, Mean Platelet Volume 10.3H, Neutrophils (%) (Auto) , Lymphocytes (% ) (Auto) , Monocytes (%) (Auto) , Eosinophils (%) (Auto) , Basophils (%) (Auto) , Differential Total Cells Counted 100, Neutrophils % (Manual) 81H, Lymphocytes % (Manual) 7L, Monocytes % (Manual) 3, Eosinophils % (Manual) 0, Basophils % ( Manual) 0, Band Neutrophils 9H, Platelet Estimate Adequate, Platelet Morphology Normal, Red Blood Cell Morphology Normal, Sodium Level 132L, Potassium Level 2.9L, Chloride Level 99, Carbon Dioxide Level 21, Anion Gap 12, Blood Urea Nitrogen 31H, Creatinine 1.6H, Estimat Glomerular Filtration Rate 43.9, Glucose Level 106, Calcium Level 7.7L, Total Bilirubin 0.5, Aspartate Amino Transf (AST/ SGOT) 62H, Alanine Aminotransferase (ALT/SGPT) 20, Alkaline Phosphatase 64, Total Protein 6.1L, Albumin 2.6L, Globulin 3.5, Albumin/Globulin Ratio 0.7L Current Medications Medications (Trade) Dose Ordered Sig/Howard Route PRN Reason Start Time Stop Time Status Last Admin Dose Admin Acetaminophen (Tylenol) 650 mg Q4H PRN ORAL fever 04/03/17 21:45 05/03/17 21:44 04/04/17 11:25 Albuterol/ Ipratropium (DuoNeb 0.5-3(2.5)mg/3ml) 3 ml Q4H PRN HHN Shortness of Breath 04/03/17 21:45 04/08/17 21:44 Cefepime HCl 2 gm/ Dextrose 110 ml @ 220 mls/hr Q24H IV 04/04/17 09:00 04/11/17 08:59 Future Hold 04/04/17 10:28 Dextrose (Dextrose 50%) STAT PRN IV Hypoglycemia 04/03/17 21:45 05/03/17 21:44 Heparin Sodium (Porcine) (Heparin 5000 units/ml) 5,000 units EVERY 12 HOURS SUBQ 04/04/17 09:00 05/04/17 08:59 Magnesium Sulfate 100 ml @ 100 mls/hr Q1H IVPB 04/04/17 10:45 04/04/17 13:44 04/04/17 12:14 Metronidazole 100 ml @ 100 mls/hr ONCE ONCE IVPB 04/04/17 12:30 04/04/17 13:29 Morphine Sulfate (Morphine Sulfate) 2 mg Q4H PRN IVP Moderate Pain (Pain Scale 4-6) 04/03/17 21:45 04/10/17 21:44 Nitroglycerin (Ntg) 0.4 mg Every 5 Minutes PRN SL Prn Chest Pain 04/03/17 21:45 05/03/17 21:44 Ondansetron HCl (Zofran) 4 mg Q6H PRN IVP Nausea & Vomiting 04/03/17 21:45 05/03/17 21:44 Piperacillin Sod/ Tazobactam Sod 3.375 gm/Dextrose 110 ml @ 27.5 mls/hr Q8HR@0200,1000,1800 IVPB 04/04/17 18:00 04/11/17 17:59 Polyethylene Glycol (Miralax) 17 gm DAILYPRN PRN ORAL Constipation 04/03/17 21:45 05/03/17 21:44 Sodium Chloride 1,000 ml @ 100 mls/hr Q10H IVLG 04/04/17 00:21 05/04/17 00:20 04/04/17 11:05 Temazepam (Restoril) 15 mg HSPRN PRN ORAL Insomnia 04/03/17 21:45 04/10/17 21:44 Vancomycin HCl (Vanco rx to dose) 1 ea DAILY PRN MISC PRN RX PROTOCOL 04/03/17 22:15 05/03/17 22:14 Vancomycin HCl 1 gm/Dextrose 275 ml @ 183.3 mls/ hr Q24H IVPB 04/04/17 21:00 04/09/17 20:59 ANAID GRIMALDO Apr 04, 2017 13:18
--- NOTE | 2017-04-04 15:15 | GI Initial Consult Note ---
Tanja Larsen N.PJune 04/04/17 1515: History of Present Illness General Date patient seen: Apr 04, 2017 Time patient seen: 10:00 Reason for Hospitalization: Generalized Weakness Referring physician: ANAID GRIMALDO Reason for Consultation: DIARRHEA Present Illness HPI 61 year old male with hx of HTN came from home brought by son c/o fever for 2x days, right leg numbness, and difficulty urinating. Patient AOx4, VSS, ambulatory with steady gait, no s/s of resp distress noted at this time. Patient is kosovan speaking. Son at the bed site helps with translation. Pt was diagnosed to have sepsis and admitted to telemetry for further management. GI consulted for diarrhea. HPI as noted above. Pt seen on floor, awake A&Ox4 NAD with no active s/sx of N/V. C/o of generalized weakness. Presents today with leukocytosis, diarrhea, 6x5 fusiform AAA, and elevated creatinine. No history of endoscopic or colonoscopies. Home Meds Reported Medications Losartan Potassium (LOSARTAN POTASSIUM) 100 Mg Tablet, ORAL DAILY, TAB 04/04/17 Carvedilol (Coreg) 6.25 Mg Tablet, 6.25 MG ORAL DAILY, TAB 04/04/17 Med list reviewed/reconciled: Yes Allergies: Coded Allergies: No Known Allergies (Unverified , 04/03/17) Patient History Limited by: medical condition History Provided By: Medical Record [facility] Narrative Healthcare decision maker Resuscitation status Full Code Advanced Directive on File Social History: Denies: smoking, alcohol use, drug use, other Review of Systems All Other Systems: limited Physical Exam Vital Signs Date Time Temp Pulse Resp B/P (MAP) Pulse Ox O2 Delivery O2 Flow Rate FiO2 04/03/17 19:06 97.3 78 16 88/54 96 Room Air Sp02 EP Interpretation: reviewed Labs Laboratory Tests Test 04/03/17 19:40 04/03/17 21:00 04/03/17 21:10 04/04/17 07:30 White Blood Count 26.6 K/UL (4.8-10.8) *H 16.3 K/UL (4.8-10.8) H Red Blood Count 5.20 M/UL (4.70-6.10) 4.33 M/UL (4.70-6.10) L Hemoglobin 16.7 G/DL (14.2-18.0) 14.3 G/DL (14.2-18.0) Hematocrit 49.6 % (42.0-52.0) 40.4 % (42.0-52.0) L Mean Corpuscular Volume 95 FL (80-99) 93 FL (80-99) Mean Corpuscular Hemoglobin 32.2 PG (27.0-31.0) H 33.1 PG (27.0-31.0) H Mean Corpuscular Hemoglobin Concent 33.7 G/DL (32.0-36.0) 35.4 G/DL (32.0-36.0) Red Cell Distribution Width 12.5 % (11.6-14.8) 12.4 % (11.6-14.8) Platelet Count 141 K/UL (150-450) L 114 K/UL (150-450) L Mean Platelet Volume 9.6 FL (6.5-10.1) 10.3 FL (6.5-10.1) H Neutrophils (%) (Auto) % (45.0-75.0) % (45.0-75.0) Lymphocytes (%) (Auto) % (20.0-45.0) % (20.0-45.0) Monocytes (%) (Auto) % (1.0-10.0) % (1.0-10.0) Eosinophils (%) (Auto) % (0.0-3.0) % (0.0-3.0) Basophils (%) (Auto) % (0.0-2.0) % (0.0-2.0) Differential Total Cells Counted 100 100 Neutrophils % (Manual) 78 % (45-75) H 81 % (45-75) H Lymphocytes % (Manual) 5 % (20-45) L 7 % (20-45) L Monocytes % (Manual) 7 % (1-10) 3 % (1-10) Eosinophils % (Manual) 0 % (0-3) 0 % (0-3) Basophils % (Manual) 0 % (0-2) 0 % (0-2) Band Neutrophils 10 % (0-8) H 9 % (0-8) H Toxic Granulation 1+ Platelet Estimate Decreased L Adequate Platelet Morphology Normal Normal Red Blood Cell Morphology Normal Normal Sodium Level 132 MMOL/L (136-145) L 132 MMOL/L (136-145) L Potassium Level 3.3 MMOL/L (3.5-5.1) L 2.9 MMOL/L (3.5-5.1) L Chloride Level 94 MMOL/L (98-107) L 99 MMOL/L (98-107) Carbon Dioxide Level 25 MMOL/L (21-32) 21 MMOL/L (21-32) Anion Gap 13 (5-15) 12 (5-15) Blood Urea Nitrogen 34 mg/dL (7-18) H 31 mg/dL (7-18) H Creatinine 3.0 MG/DL (0.55-1.30) H 1.6 MG/DL (0.55-1.30) H Estimat Glomerular Filtration Rate 21.2 mL/min (>60) 43.9 mL/min (>60) Glucose Level 167 MG/DL (74-106) H 106 MG/DL (74-106) Osmolality 296 mOsm/kg (297-317) L Lactic Acid Level 3.90 mmol/L (0.66-2.22) H 2.70 mmol/L (0.66-2.22) H Uric Acid 6.6 MG/DL (2.6-7.2) Calcium Level 9.6 MG/DL (8.5-10.1) 7.7 MG/DL (8.5-10.1) L Phosphorus Level 4.2 MG/DL (2.5-4.9) Magnesium Level 1.4 MG/DL (1.5-2.4) L Total Bilirubin 0.8 MG/DL (0.2-1.0) 0.5 MG/DL (0.2-1.0) Aspartate Amino Transf (AST/SGOT) 44 U/L (15-37) H 62 U/L (15-37) H Alanine Aminotransferase (ALT/SGPT) 24 U/L (12-78) 20 U/L (12-78) Alkaline Phosphatase 78 U/L (46-116) 64 U/L (46-116) Total Creatine Kinase 1494 U/L (26-308) H Creatine Kinase MB 5.5 NG/ML (0.0-3.6) H Creatine Kinase MB Relative Index 0.0 Troponin I 0.431 ng/mL (0.000-0.056) Pro-B-Type Natriuretic Peptide 8579 (0-125) H Total Protein 7.9 G/DL (6.4-8.2) 6.1 G/DL (6.4-8.2) L Albumin 3.4 G/DL (3.4-5.0) 2.6 G/DL (3.4-5.0) L Globulin 4.5 g/dL 3.5 g/dL Albumin/Globulin Ratio 0.8 (1.0-2.7) L 0.7 (1.0-2.7) L Lipase 83 U/L (73-393) Free Thyroxine 1.47 NG/DL (0.10-1.46) H Urine Color Brown Urine Appearance Turbid Urine pH 5 (4.5-8.0) Urine Specific [place] 1.020 (1.005-1.035) Urine Protein 3+ (NEGATIVE) H Urine Glucose (UA) 1+ (NEGATIVE) H Urine Ketones 1+ (NEGATIVE) H Urine Occult Blood 5+ (NEGATIVE) H Urine Nitrite Positive (NEGATIVE) H Urine Bilirubin 2+ (NEGATIVE) H Urine Ictotest Positive Urine Urobilinogen 4 MG/DL (0.0-1.0) H Urine Leukocyte Esterase 3+ (NEGATIVE) H Urine RBC Tntc /HPF (0 - 0) H Urine WBC Tntc /HPF (0 - 0) H Urine Squamous Epithelial Cells Few /LPF (NONE/OCC) Urine Amorphous Sediment Many /LPF (NONE) H Urine Bacteria Many /HPF (NONE) H Urine Eosinophils None seen Urine Osmolality 384 mOsm/kg (429-449) L Urine Random Sodium 15 MEQ/L (20-110) L Urine Random Chloride 31 mmol/L (55-125) L Urine Potassium Timed 92 mmol/L (12-62) H General Appearance: no apparent distress Head: normocephalic Neck: supple Respiratory: normal breath sounds, no respiratory distress Cardiovascular: normal rate Gastrointestinal: soft Genitourinary: no CVA tenderness Neurologic: normal inspection, alert, oriented x3, responsive Psychiatric: normal inspection, judgement/insight normal, memory normal Skin: normal inspection, normal color, no rash Lymphatic: normal inspection, no adenopathy Current Medications Current Medications Medications (Trade) Dose Ordered Sig/Howard Route PRN Reason Start Time Stop Time Status Last Admin Dose Admin Acetaminophen (Tylenol) 650 mg Q4H PRN ORAL fever 04/03/17 21:45 05/03/17 21:44 04/04/17 11:25 Albuterol/ Ipratropium (DuoNeb 0.5-3(2.5)mg/3ml) 3 ml Q4H PRN HHN Shortness of Breath 04/03/17 21:45 04/08/17 21:44 Cefepime HCl 2 gm/ Dextrose 110 ml @ 220 mls/hr Q24H IV 04/04/17 09:00 04/11/17 08:59 Future Hold 04/04/17 10:28 Dextrose (Dextrose 50%) STAT PRN IV Hypoglycemia 04/03/17 21:45 05/03/17 21:44 Heparin Sodium (Porcine) (Heparin 5000 units/ml) 5,000 units EVERY 12 HOURS SUBQ 04/04/17 09:00 05/04/17 08:59 Morphine Sulfate (Morphine Sulfate) 2 mg Q4H PRN IVP Moderate Pain (Pain Scale 4-6) 04/03/17 21:45 04/10/17 21:44 Nitroglycerin (Ntg) 0.4 mg Every 5 Minutes PRN SL Prn Chest Pain 04/03/17 21:45 05/03/17 21:44 Ondansetron HCl (Zofran) 4 mg Q6H PRN IVP Nausea & Vomiting 04/03/17 21:45 05/03/17 21:44 Piperacillin Sod/ Tazobactam Sod 3.375 gm/Dextrose 110 ml @ 27.5 mls/hr Q8HR@0200,1000,1800 IVPB 04/04/17 18:00 04/11/17 17:59 Polyethylene Glycol (Miralax) 17 gm DAILYPRN PRN ORAL Constipation 04/03/17 21:45 05/03/17 21:44 Potassium Chloride 30 meq/ Dextrose/Sodium Chloride 1,015 ml @ 75 mls/hr [id number] IV 04/04/17 15:00 05/04/17 14:59 Temazepam (Restoril) 15 mg HSPRN PRN ORAL Insomnia 04/03/17 21:45 04/10/17 21:44 Vancomycin HCl (Vanco rx to dose) 1 ea DAILY PRN MISC PRN RX PROTOCOL 04/03/17 22:15 05/03/17 22:14 Vancomycin HCl 1 gm/Dextrose 275 ml @ 183.3 mls/ hr Q24H IVPB 04/04/17 21:00 04/09/17 20:59 GI: Plan Problems: (1) Leukocytosis (2) Abdominal aortic aneurysm (3) Elevated troponin (4) Sepsis Plan CT AP reviewed >> see full report. - 6.1 x 5.6 cm fusiform abdominal aortic aneurysm. No evidence of rupture or leakage. - Suspicious for cystitis, - small HH elevated troponin symptomatic treatment at this time regular diet fu cdiff PO hydration + electrolyte replacement H2B prophylaxis fu labs outpatient GI procedures. Discussed with Dr. Stephenson. Thank you for this patient referral, we will follow. VENANCIO STEPHENSON 04/06/17 0916: History of Present Illness General Reason for Hospitalization: Generalized Weakness Present Illness Home Meds Reported Medications Losartan Potassium (LOSARTAN POTASSIUM) 100 Mg Tablet, ORAL DAILY, TAB 04/04/17 Carvedilol (Coreg) 6.25 Mg Tablet, 6.25 MG ORAL DAILY, TAB 04/04/17 Allergies: Coded Allergies: No Known Allergies (Unverified , 04/03/17) GI: Plan Plan The patient was seen and examined at bedside and all new and available data was reviewed in the patients chart. I agree with the above findings, impression and plan. (Patient seen earlier today. Signature stamp does not reflect patient encounter time.). - [facility] Aaron N.Delmar Apr 04, 2017 15:15 VENANCIO STEPHENSON Apr 06, 2017 09:16
--- NOTE | 2017-04-04 15:45 | Diagnostic Imaging Report ---
Indication: Elevated renal function test, hypertension Technique: Grayscale and duplex images of the kidneys, retroperitoneum, and bladder were obtained. Comparison:Reference made to CT scan 04/03/2017 Findings: Right kidney measures 12.1 cm in length. Left kidney measures 12.5 cm in length. Both kidneys demonstrate normal echogenicity. No hydronephrosis. Left kidney demonstrates an exophytic 12 mm hypoechoic lesion, with equivocal distal acoustic enhancement, corresponding to the indeterminate exophytic lesion demonstrated on recent CT. It also demonstrates a 2.9 cm lower pole cyst. No focal right renal abnormality. Normal inferior vena cava. Bladder is normal. Prostate is prominent, volume 85 mL. Impression: Negative for hydronephrosis Exophytic indeterminate left renal mass, likely but not definitively a benign simple cyst, also indeterminate but likely cystic on recent CT scan. Recommend short interval followup sonography in 6 months. Enlarged prostate Incidental finding left lower pole renal cyst, also demonstrated on recent CT
[2017-04-04 15:59] VITALS: BP 120/68
[2017-04-04] MEDS: Piperacillin/Tazobactam 3.375 GM in D5W 110 ML IVPB SCH (17:27)
[2017-04-04 20:16] VITALS: BP 134/89
[2017-04-04] MEDS ORDERED: Vancomycin 1 GM in D5W 275 ML IVPB SCH (21:00)
[2017-04-05 00:33] VITALS: BP 148/98
[2017-04-05] MEDS: Piperacillin/Tazobactam 3.375 GM in D5W 110 ML IVPB SCH ×3 (02:27→18:35)
[2017-04-05 04:18] VITALS: BP 143/88
[2017-04-05 08:00] VITALS: BP 140/98
[2017-04-05 09:18] LABS: MEAN CORPUSCULAR HEMOGLOBIN 31.1 PG (27.0-31.0); MEAN CORPUSCULAR HGB CONC 33.6 G/DL (32.0-36.0); MEAN CORPUSCULAR VOLUME 93 FL (80-99); MEAN PLATELET VOLUME 10.4 FL (6.5-10.1); PLATELET COUNT 109 K/UL (150-450); RED BLOOD COUNT 4.42 M/UL (4.70-6.10)
[2017-04-05 09:31] LABS: ANION GAP 6 (5-15); CALCIUM 8.1 MG/DL (8.5-10.1); CARBON DIOXIDE 24 MMOL/L (21-32); CHLORIDE 102 MMOL/L (98-107); CREATININE 1.1 MG/DL (0.55-1.30); GLOMERULAR FILTRATION RATE > 60 mL/min (>60); MAGNESIUM 2.2 MG/DL (1.8-2.4); PHOSPHORUS 2.1 MG/DL (2.5-4.9); POTASSIUM 3.5 MMOL/L (3.5-5.1); SODIUM 132 MMOL/L (136-145)
--- NOTE | 2017-04-05 09:37 | Consultation ---
Consult Note Consult Note Pt admitted with urosepsis, incidental finding of AAA on CT abd/pelv. Pt denies CP/SOB or abd./back pain. PMH/ROS/hosp.course noted. Exam -- NAD; AVSS; cor RRR; lungs CTA; abd. soft, NT, ND; extr. no C/C/E, weak pedal pulses, femoral and radial pulses WNL, no ulcer/gangrene. Labs/imaging reviewed. Assessment/Plan Incidental finding of [address] abd/pelv. -- will need full w/u and optimization prior to repair electively -- cardio. eval. pending for elevated trop. -- improving renal function; once normal will obtain CTA abd/pelv. for more detailed imaging of AAA -- pt advised to stop smoking -- beta-blockers/statins per PMD/cardio -- abx per ID -- DVT prophylaxis DEEP ANGLIN Apr 05, 2017 09:37
[2017-04-05] MEDS: Heparin 5000 units/ml inj SUBQ SCH (09:57)
[2017-04-05 11:46] LABS: BAND NEUTROPHILS % (MANUAL) 7 % (0-8); BASOPHILS % (MANUAL) 0 % (0-2); EOSINOPHILS % (MANUAL) 2 % (0-3); LYMPHOCYTES % (MANUAL) 4 % (20-45); NEUTROPHILS % (MANUAL) 83 % (45-75); PLATELET ESTIMATE DECREASED; PLATELET MORPHOLOGY NORMAL; TOTAL CELLS COUNTED 100
[2017-04-05 12:00] VITALS: BP 135/75
--- NOTE | 2017-04-05 12:14 | GI Progress Note ---
Assessment/Plan Problems: (1) Abdominal aortic aneurysm ICD Codes: I71.4 - Abdominal aortic aneurysm, without rupture SNOMED: 926235818 (2) Leukocytosis ICD Codes: D72.829 - Elevated white blood cell count, unspecified SNOMED: 747250633, 805107835 (3) Sepsis ICD Codes: A41.9 - Sepsis, unspecified organism SNOMED: 83313917 (4) Elevated troponin ICD Codes: R74.8 - Abnormal levels of other serum enzymes; R65.20 - Severe sepsis without septic shock SNOMED: 997181871, 115766841 Status: unchanged Status Narrative Discussed with Dr. Hickey. Assessment/Plan CT AP reviewed >> see full report. - 6.1 x 5.6 cm fusiform abdominal aortic aneurysm. No evidence of rupture or leakage. - Suspicious for cystitis, - small HH elevated troponin fu vascular surgery recs symptomatic treatment at this time regular diet fu cdiff PO hydration + electrolyte replacement H2B prophylaxis fu labs outpatient GI procedures. Subjective Gastrointestinal/Abdominal: Reports: abdominal pain Objective Last 24 Hour Vital Signs Date Time Temp Pulse Resp B/P (MAP) Pulse Ox O2 Delivery O2 Flow Rate FiO2 04/05/17 10:43 105 18 Room Air 04/05/17 08:00 98.2 96 20 140/98 94 Room Air 04/05/17 08:00 97 04/05/17 04:18 98.2 102 20 143/88 96 Room Air 04/05/17 04:00 98 04/05/17 00:33 98.2 100 20 148/98 95 Room Air 04/05/17 00:00 111 04/04/17 22:53 105 18 Room Air 21 04/04/17 20:16 99.1 106 20 134/89 93 Room Air 04/04/17 20:00 106 04/04/17 16:00 106 04/04/17 15:59 98.1 107 20 120/68 95 Nasal Cannula 2.0 04/04/17 12:24 98.1 Laboratory Tests Test 04/05/17 09:05 White Blood Count 12.0 K/UL (4.8-10.8) H Red Blood Count 4.42 M/UL (4.70-6.10) L Hemoglobin 13.7 G/DL (14.2-18.0) L Hematocrit 40.9 % (42.0-52.0) L Mean Corpuscular Volume 93 FL (80-99) Mean Corpuscular Hemoglobin 31.1 PG (27.0-31.0) H Mean Corpuscular Hemoglobin Concent 33.6 G/DL (32.0-36.0) Red Cell Distribution Width 12.0 % (11.6-14.8) Platelet Count 109 K/UL (150-450) L Mean Platelet Volume 10.4 FL (6.5-10.1) H Neutrophils (%) (Auto) % (45.0-75.0) Lymphocytes (%) (Auto) % (20.0-45.0) Monocytes (%) (Auto) % (1.0-10.0) Eosinophils (%) (Auto) % (0.0-3.0) Basophils (%) (Auto) % (0.0-2.0) Differential Total Cells Counted 100 Neutrophils % (Manual) 83 % (45-75) H Lymphocytes % (Manual) 4 % (20-45) L Monocytes % (Manual) 4 % (1-10) Eosinophils % (Manual) 2 % (0-3) Basophils % (Manual) 0 % (0-2) Band Neutrophils 7 % (0-8) Platelet Estimate Decreased L Platelet Morphology Normal Red Blood Cell Morphology Normal Sodium Level 132 MMOL/L (136-145) L Potassium Level 3.5 MMOL/L (3.5-5.1) Chloride Level 102 MMOL/L (98-107) Carbon Dioxide Level 24 MMOL/L (21-32) Anion Gap 6 (5-15) Blood Urea Nitrogen 15 mg/dL (7-18) Creatinine 1.1 MG/DL (0.55-1.30) Estimat Glomerular Filtration Rate > 60 mL/min (>60) Glucose Level 134 MG/DL (74-106) H Hemoglobin A1c 7.4 % (4.5-6.2) H Calcium Level 8.1 MG/DL (8.5-10.1) L Phosphorus Level 2.1 MG/DL (2.5-4.9) L Magnesium Level 2.2 MG/DL (1.8-2.4) Troponin I 0.035 ng/mL (0.000-0.056) Height (Feet): 5 Height (Inches): 8.00 Weight (Pounds): 179 General Appearance: no apparent distress, alert Cardiovascular: normal rate Respiratory/Chest: normal breath sounds, no respiratory distress Abdominal Exam: normal bowel sounds, non tender, soft Extremities: normal range of motion Tanja Larsen N.P. Apr 05, 2017 12:14
[2017-04-05] MEDS ORDERED: Sodium Phosphate 30 MM in NS 275 ML IVPB ONE (13:30)
--- NOTE | 2017-04-05 14:51 | Pulmonology Progress Note ---
Assessment/Plan Problems: (1) Severe sepsis (2) UTI (urinary tract infection) (3) Elevated troponin Assessment/Plan wbc lower check cultures, GNR in blood CT abdomen reviewed, Vascular study note reviewed Urology still pending cardio to see Subjective ROS Limited/Unobtainable: No Constitutional: Reports: no symptoms HEENT: Repors: no symptoms Respiratory: Reports: no symptoms Cardiovascular: Reports: no symptoms Allergies: Coded Allergies: No Known Allergies (Unverified , 04/03/17) Objective Last 24 Hour Vital Signs Date Time Temp Pulse Resp B/P (MAP) Pulse Ox O2 Delivery O2 Flow Rate FiO2 04/05/17 12:00 98.2 101 19 135/75 95 Room Air 04/05/17 12:00 96 04/05/17 10:43 105 18 Room Air 04/05/17 08:00 98.2 96 20 140/98 94 Room Air 04/05/17 08:00 97 04/05/17 04:18 98.2 102 20 143/88 96 Room Air 04/05/17 04:00 98 04/05/17 00:33 98.2 100 20 148/98 95 Room Air 04/05/17 00:00 111 04/04/17 22:53 105 18 Room Air 21 04/04/17 20:16 99.1 106 20 134/89 93 Room Air 04/04/17 20:00 106 04/04/17 16:00 106 04/04/17 15:59 98.1 107 20 120/68 95 Nasal Cannula 2.0 General Appearance: WD/WN HEENT: normocephalic, anicteric Respiratory/Chest: chest wall non-tender, lungs clear Cardiovascular: normal peripheral pulses, normal rate Abdomen: normal bowel sounds, soft, non tender, no organomegaly Extremities: no cyanosis, no clubbing Skin: no rash, no lesions Microbiology Date/Time Source Procedure Growth Status 04/03/17 19:40 Blood Blood Culture - Preliminary Resulted 04/03/17 19:25 Blood Blood Culture - Preliminary Resulted 04/04/17 07:09 Stool Clostridium difficile Toxin Assay - Final Complete 04/03/17 21:10 Urine,Clean Catch Urine Culture - Preliminary Gram Negative Bacillus 1 Resulted Laboratory Tests 04/05/17 09:05: White Blood Count 12.0H, Red Blood Count 4.42L, Hemoglobin 13.7L, Hematocrit 40.9L, Mean Corpuscular Volume 93, Mean Corpuscular Hemoglobin 31.1H, Mean Corpuscular Hemoglobin Concent 33.6, Red Cell Distribution Width 12.0, Platelet Count 109L, Mean Platelet Volume 10.4H, Neutrophils (%) (Auto) , Lymphocytes (% ) (Auto) , Monocytes (%) (Auto) , Eosinophils (%) (Auto) , Basophils (%) (Auto) , Differential Total Cells Counted 100, Neutrophils % (Manual) 83H, Lymphocytes % (Manual) 4L, Monocytes % (Manual) 4, Eosinophils % (Manual) 2, Basophils % ( Manual) 0, Band Neutrophils 7, Platelet Estimate DecreasedL, Platelet Morphology Normal, Red Blood Cell Morphology Normal, Sodium Level 132L, Potassium Level 3.5, Chloride Level 102, Carbon Dioxide Level 24, Anion Gap 6, Blood Urea Nitrogen 15, Creatinine 1.1, Estimat Glomerular Filtration Rate > 60 , Glucose Level 134H, Hemoglobin A1c 7.4H, Calcium Level 8.1L, Phosphorus Level 2.1L, Magnesium Level 2.2, Troponin I 0.035 Current Medications Medications (Trade) Dose Ordered Sig/Howard Route PRN Reason Start Time Stop Time Status Last Admin Dose Admin Acetaminophen (Tylenol) 650 mg Q4H PRN ORAL fever 04/03/17 21:45 05/03/17 21:44 04/04/17 11:25 Albuterol/ Ipratropium (DuoNeb 0.5-3(2.5)mg/3ml) 3 ml Q4H PRN HHN Shortness of Breath 04/03/17 21:45 04/08/17 21:44 Cefepime HCl 2 gm/ Dextrose 110 ml @ 220 mls/hr Q24H IV 04/04/17 09:00 04/11/17 08:59 Future Hold 04/04/17 10:28 Dextrose (Dextrose 50%) STAT PRN IV Hypoglycemia 04/03/17 21:45 05/03/17 21:44 Heparin Sodium (Porcine) (Heparin 5000 units/ml) 5,000 units EVERY 12 HOURS SUBQ 04/04/17 09:00 05/04/17 08:59 04/05/17 09:57 Morphine Sulfate (Morphine Sulfate) 2 mg Q4H PRN IVP Moderate Pain (Pain Scale 4-6) 04/03/17 21:45 04/10/17 21:44 Nitroglycerin (Ntg) 0.4 mg Every 5 Minutes PRN SL Prn Chest Pain 04/03/17 21:45 05/03/17 21:44 Ondansetron HCl (Zofran) 4 mg Q6H PRN IVP Nausea & Vomiting 04/03/17 21:45 05/03/17 21:44 Piperacillin Sod/ Tazobactam Sod 3.375 gm/Dextrose 110 ml @ 27.5 mls/hr Q8HR@0200,1000,1800 IVPB 04/04/17 18:00 04/11/17 17:59 04/05/17 09:57 Polyethylene Glycol (Miralax) 17 gm DAILYPRN PRN ORAL Constipation 04/03/17 21:45 05/03/17 21:44 Potassium Chloride 30 meq/ Dextrose/Sodium Chloride 1,015 ml @ 75 mls/hr [id number] IV 04/04/17 15:00 05/04/17 14:59 04/05/17 05:35 Ranitidine HCl (Zantac) 150 mg BEDTIME ORAL 04/04/17 21:00 05/04/17 20:59 04/04/17 21:22 Sodium Phosphate 30 mm/Sodium Chloride 285 ml @ 47.5 mls/hr ONCE ONCE IVPB 04/05/17 13:30 04/05/17 19:29 04/05/17 13:30 Temazepam (Restoril) 15 mg HSPRN PRN ORAL Insomnia 04/03/17 21:45 04/10/17 21:44 Vancomycin HCl (Vanco rx to dose) 1 ea DAILY PRN MISC PRN RX PROTOCOL 04/03/17 22:15 05/03/17 22:14 Vancomycin HCl 1 gm/Dextrose 275 ml @ 183.3 mls/ hr Q24H IVPB 04/04/17 21:00 04/09/17 20:59 04/04/17 21:41 ANAID GRIMALDO Apr 05, 2017 14:51
--- NOTE | 2017-04-05 15:31 | Cardiac Electrophysiology PN ---
Subjective Subjective [id number]. Troponin leak in the setting of rhabdo and renal failure. EF NL. Objective Last 24 Hour Vital Signs Date Time Temp Pulse Resp B/P (MAP) Pulse Ox O2 Delivery O2 Flow Rate FiO2 04/05/17 12:00 98.2 101 19 135/75 95 Room Air 04/05/17 12:00 96 04/05/17 10:43 105 18 Room Air 04/05/17 08:00 98.2 96 20 140/98 94 Room Air 04/05/17 08:00 97 04/05/17 04:18 98.2 102 20 143/88 96 Room Air 04/05/17 04:00 98 04/05/17 00:33 98.2 100 20 148/98 95 Room Air 04/05/17 00:00 111 04/04/17 22:53 105 18 Room Air 21 04/04/17 20:16 99.1 106 20 134/89 93 Room Air 04/04/17 20:00 106 04/04/17 16:00 106 04/04/17 15:59 98.1 107 20 120/68 95 Nasal Cannula 2.0 Laboratory Tests Test 04/05/17 09:05 White Blood Count 12.0 K/UL (4.8-10.8) H Red Blood Count 4.42 M/UL (4.70-6.10) L Hemoglobin 13.7 G/DL (14.2-18.0) L Hematocrit 40.9 % (42.0-52.0) L Mean Corpuscular Volume 93 FL (80-99) Mean Corpuscular Hemoglobin 31.1 PG (27.0-31.0) H Mean Corpuscular Hemoglobin Concent 33.6 G/DL (32.0-36.0) Red Cell Distribution Width 12.0 % (11.6-14.8) Platelet Count 109 K/UL (150-450) L Mean Platelet Volume 10.4 FL (6.5-10.1) H Neutrophils (%) (Auto) % (45.0-75.0) Lymphocytes (%) (Auto) % (20.0-45.0) Monocytes (%) (Auto) % (1.0-10.0) Eosinophils (%) (Auto) % (0.0-3.0) Basophils (%) (Auto) % (0.0-2.0) Differential Total Cells Counted 100 Neutrophils % (Manual) 83 % (45-75) H Lymphocytes % (Manual) 4 % (20-45) L Monocytes % (Manual) 4 % (1-10) Eosinophils % (Manual) 2 % (0-3) Basophils % (Manual) 0 % (0-2) Band Neutrophils 7 % (0-8) Platelet Estimate Decreased L Platelet Morphology Normal Red Blood Cell Morphology Normal Sodium Level 132 MMOL/L (136-145) L Potassium Level 3.5 MMOL/L (3.5-5.1) Chloride Level 102 MMOL/L (98-107) Carbon Dioxide Level 24 MMOL/L (21-32) Anion Gap 6 (5-15) Blood Urea Nitrogen 15 mg/dL (7-18) Creatinine 1.1 MG/DL (0.55-1.30) Estimat Glomerular Filtration Rate > 60 mL/min (>60) Glucose Level 134 MG/DL (74-106) H Hemoglobin A1c 7.4 % (4.5-6.2) H Calcium Level 8.1 MG/DL (8.5-10.1) L Phosphorus Level 2.1 MG/DL (2.5-4.9) L Magnesium Level 2.2 MG/DL (1.8-2.4) Troponin I 0.035 ng/mL (0.000-0.056) Microbiology Date/Time Source Procedure Growth Status 04/03/17 19:40 Blood Blood Culture - Preliminary Resulted 04/03/17 19:25 Blood Blood Culture - Preliminary Resulted 04/04/17 07:09 Stool Clostridium difficile Toxin Assay - Final Complete 04/03/17 21:10 Urine,Clean Catch Urine Culture - Preliminary Gram Negative Bacillus 1 Resulted SISSY LIU Apr 05, 2017 15:31
[2017-04-05 16:00] VITALS: BP 140/87
--- NOTE | 2017-04-05 17:06 | Infectious Diseases Prog Note ---
Assessment/Plan Assessment/Plan Abx: IV Vanco 04/03-1012 IV Ceftriaxone x1 04/03 Cefepime 04/04 Zosyn 04/04- Assesment: Severe Sepsis 2ry to UTI and possible prostatitis; ? emphysematous cystitis and high grade GNR bacteremia; sepsis improving mild hypotension- improved with fluids -U/a significant pyuria (WBC TNTC), nit +, leuk +3; Ucx >100K GNR (Id and sensi pending) -Bcx 04/03 09/26 GNR (ID and sensi pending) -Renal U/s 04/04: Negative for hydronephrosis. Exophytic indeterminate left renal mass, likely but not definitively a benign simple cyst, also indeterminate but likely cystic on recent CT scan. Enlarged prostate -CT abd/p: 6.1 x 5.6 cm fusiform abdominal aortic aneurysm. No evidence of rupture or leakage. Thick walled bladder, prominent seminal vesicles, and prominent prostate with surrounding inflammatory change. Findings are suspicious for cystitis, possible prostatitis, and inflammation of the seminal vesicles. Gas bubbles within the bladder, raises concern for emphysematous cystitis. Lower pole renal cyst. Exiting subcentimeter low-attenuation renal lesion too small to characterize. No further followup necessary -CXR no acute process Fever/Leukocytosis- 2ry to above; improving Acute Diarrhea- r/o bacterial process Cdiff neg Thrombocytopenia, worsening- 2ry to sepsis Mild AST elevation, worsening HILARIO, improving Lactic acidosis, improving Plan: -Continue IV Zosyn #2 (Abx d#3) for UTI/Bacteremia, prostatitis pending ID GNR. -if further fevers, HD decompensation, switch to Meropenem for broader abx coverage -D/C IV Vancomycin -check stool cx -urology eval pending given possible emphysematous cystitis -f/u cx -Monitor CBC/BMP, temperatures Discussed with RN and son at bedside. Subjective Allergies: Coded Allergies: No Known Allergies (Unverified , 04/03/17) Subjective afebrile in >24hrs leukocytosis improving bacteremic with GNR, ucx also grownig GNR Patient will be transferred to [facility] Objective Vital Signs Last 24 Hour Vital Signs Date Time Temp Pulse Resp B/P (MAP) Pulse Ox O2 Delivery O2 Flow Rate FiO2 04/05/17 16:00 98.6 90 21 140/87 94 Room Air 04/05/17 12:00 98.2 101 19 135/75 95 Room Air 04/05/17 12:00 96 04/05/17 10:43 105 18 Room Air 04/05/17 08:00 98.2 96 20 140/98 94 Room Air 04/05/17 08:00 97 04/05/17 04:18 98.2 102 20 143/88 96 Room Air 04/05/17 04:00 98 04/05/17 00:33 98.2 100 20 148/98 95 Room Air 04/05/17 00:00 111 04/04/17 22:53 105 18 Room Air 21 04/04/17 20:16 99.1 106 20 134/89 93 Room Air 04/04/17 20:00 106 Height (Feet): 5 Height (Inches): 8.00 Weight (Pounds): 179 Objective General Appearance: looks better, not in distress Lines, tubes and drains: peripheral HEENT: normocephalic, atraumatic, no oral lesions, PERRL Neck: supple Respiratory/Chest: chest wall non-tender, lungs clear Abdomen: normal bowel sounds, S+D, NT, ND Skin: no rash Microbiology Date/Time Source Procedure Growth Status 04/03/17 19:40 Blood Blood Culture - Preliminary Resulted 04/03/17 19:25 Blood Blood Culture - Preliminary Resulted 04/04/17 07:09 Stool Clostridium difficile Toxin Assay - Final Complete 04/03/17 21:10 Urine,Clean Catch Urine Culture - Preliminary Gram Negative Bacillus 1 Resulted Laboratory Tests Test 04/05/17 09:05 04/05/17 16:30 White Blood Count 12.0 K/UL (4.8-10.8) H Red Blood Count 4.42 M/UL (4.70-6.10) L Hemoglobin 13.7 G/DL (14.2-18.0) L Hematocrit 40.9 % (42.0-52.0) L Mean Corpuscular Volume 93 FL (80-99) Mean Corpuscular Hemoglobin 31.1 PG (27.0-31.0) H Mean Corpuscular Hemoglobin Concent 33.6 G/DL (32.0-36.0) Red Cell Distribution Width 12.0 % (11.6-14.8) Platelet Count 109 K/UL (150-450) L Mean Platelet Volume 10.4 FL (6.5-10.1) H Neutrophils (%) (Auto) % (45.0-75.0) Lymphocytes (%) (Auto) % (20.0-45.0) Monocytes (%) (Auto) % (1.0-10.0) Eosinophils (%) (Auto) % (0.0-3.0) Basophils (%) (Auto) % (0.0-2.0) Differential Total Cells Counted 100 Neutrophils % (Manual) 83 % (45-75) H Lymphocytes % (Manual) 4 % (20-45) L Monocytes % (Manual) 4 % (1-10) Eosinophils % (Manual) 2 % (0-3) Basophils % (Manual) 0 % (0-2) Band Neutrophils 7 % (0-8) Platelet Estimate Decreased L Platelet Morphology Normal Red Blood Cell Morphology Normal Sodium Level 132 MMOL/L (136-145) L Potassium Level 3.5 MMOL/L (3.5-5.1) Chloride Level 102 MMOL/L (98-107) Carbon Dioxide Level 24 MMOL/L (21-32) Anion Gap 6 (5-15) Blood Urea Nitrogen 15 mg/dL (7-18) Creatinine 1.1 MG/DL (0.55-1.30) Estimat Glomerular Filtration Rate > 60 mL/min (>60) Glucose Level 134 MG/DL (74-106) H Hemoglobin A1c 7.4 % (4.5-6.2) H Calcium Level 8.1 MG/DL (8.5-10.1) L Phosphorus Level 2.1 MG/DL (2.5-4.9) L Magnesium Level 2.2 MG/DL (1.8-2.4) Troponin I 0.035 ng/mL (0.000-0.056) Pending Current Medications Medications (Trade) Dose Ordered Sig/Howard Route PRN Reason Start Time Stop Time Status Last Admin Dose Admin Acetaminophen (Tylenol) 650 mg Q4H PRN ORAL fever 04/03/17 21:45 05/03/17 21:44 04/04/17 11:25 Albuterol/ Ipratropium (DuoNeb 0.5-3(2.5)mg/3ml) 3 ml Q4H PRN HHN Shortness of Breath 04/03/17 21:45 04/08/17 21:44 Cefepime HCl 2 gm/ Dextrose 110 ml @ 220 mls/hr Q24H IV 04/04/17 09:00 04/11/17 08:59 Future Hold 04/04/17 10:28 Dextrose (Dextrose 50%) STAT PRN IV Hypoglycemia 04/03/17 21:45 05/03/17 21:44 Heparin Sodium (Porcine) (Heparin 5000 units/ml) 5,000 units EVERY 12 HOURS SUBQ 04/04/17 09:00 05/04/17 08:59 04/05/17 09:57 Morphine Sulfate (Morphine Sulfate) 2 mg Q4H PRN IVP Moderate Pain (Pain Scale 4-6) 04/03/17 21:45 04/10/17 21:44 Nitroglycerin (Ntg) 0.4 mg Every 5 Minutes PRN SL Prn Chest Pain 04/03/17 21:45 05/03/17 21:44 Ondansetron HCl (Zofran) 4 mg Q6H PRN IVP Nausea & Vomiting 04/03/17 21:45 05/03/17 21:44 Phenazopyridine HCl (Pyridium) 100 mg THREE TIMES A DAY ORAL 04/05/17 18:00 05/05/17 17:59 Piperacillin Sod/ Tazobactam Sod 3.375 gm/Dextrose 110 ml @ 27.5 mls/hr Q8HR@0200,1000,1800 IVPB 04/04/17 18:00 04/11/17 17:59 04/05/17 09:57 Polyethylene Glycol (Miralax) 17 gm DAILYPRN PRN ORAL Constipation 04/03/17 21:45 05/03/17 21:44 Potassium Chloride 30 meq/ Dextrose/Sodium Chloride 1,015 ml @ 75 mls/hr [id number] IV 04/04/17 15:00 05/04/17 14:59 04/05/17 05:35 Ranitidine HCl (Zantac) 150 mg BEDTIME ORAL 04/04/17 21:00 05/04/17 20:59 04/04/17 21:22 Sodium Phosphate 30 mm/Sodium Chloride 285 ml @ 47.5 mls/hr ONCE ONCE IVPB 04/05/17 13:30 04/05/17 19:29 04/05/17 13:30 Temazepam (Restoril) 15 mg HSPRN PRN ORAL Insomnia 04/03/17 21:45 04/10/17 21:44 Vancomycin HCl (Vanco rx to dose) 1 ea DAILY PRN MISC PRN RX PROTOCOL 04/03/17 22:15 05/03/17 22:14 Vancomycin HCl 1 gm/Dextrose 275 ml @ 183.3 mls/ hr Q24H IVPB 04/04/17 21:00 04/09/17 20:59 04/04/17 21:41 Shona Jamison M.D. Apr 05, 2017 17:06
--- NOTE | 2017-04-05 21:30 | Consultation ---
DATE OF CONSULTATION: 04/05/2017 CARDIOLOGY CONSULTATION CONSULTING PHYSICIAN: Bi Greco M.D. REFERRING PHYSICIAN: Renea Esquivel M.D. REASON FOR CONSULTATION: Management of hypertension, elevated troponin, irregular heartbeat, as well as prolonged QT. HISTORY OF PRESENT ILLNESS: The patient is a 61-year-old gentleman from [facility] with history of hypertension, who was brought from home by his son for fever as well as intermittent constipation and diarrhea. The patient also has had difficulty urinating. In the emergency room, the patient was admitted for sepsis. His EKG also, however, showed prolonged QT with a corrected QT of 495 milliseconds. His troponin was also mildly elevated. He underwent an echocardiogram, which showed ejection fraction of 60% to 65%. At the time of my evaluation, the patient denies any chest pain, palpitation, or shortness of breath. PAST MEDICAL HISTORY: Hypertension. MEDICATIONS AT HOME: Coreg 6.25 mg b.i.d. and losartan daily. FAMILY HISTORY: Noncontributory. SOCIAL HISTORY: He lives at home. He smokes half a pack a day. REVIEW OF SYSTEMS: Review of systems was performed through his son. It was negative other than what was mentioned in the history of present illness. PHYSICAL EXAMINATION: VITAL SIGNS: Blood pressure is 135/75, pulse is 101, respirations 18, and temperature 98 degrees. HEAD AND NECK: No JVD. LUNGS: Coarse rhonchi. CARDIOVASCULAR: Regular S1 and S2 with no gallop. ABDOMEN: Soft. EXTREMITIES: No pitting edema. LABORATORY AND DIAGNOSTIC DATA: His EKG showed sinus rhythm at a rate of 100 with PACs and prolonged QT. Labs, initial white count was 26,000, today it is 12,000; hemoglobin 13.7; hematocrit 41; and platelet count is 109,000. Sodium was 132, potassium 3.5, BUN of 15, creatinine 1.1, and glucose of 134. His troponins is 0.035. Initial troponin was elevated at 0.431. BNP is 8579 and CK was 1494. ASSESSMENT AND PLAN: 1. Elevated troponin. This is nonspecific, especially in view of patient's elevated CPK of more than 1400. This may be as a result of rhabdomyolysis, especially in this patient with renal failure with creatinine of 3.0. The patient does not have any chest pain. Now, the creatinine has come down to 1.1. Troponin has also come down to within normal range. EKG demonstrates no active ischemia and echocardiogram showed normal left ventricular systolic function. The patient does not meet criteria for proceeding with a stress test in view of patient's sepsis. 2. Prolonged QT. This was in the setting of hypokalemia with a potassium of 2.9. We will repeat EKG if the potassium is more than 4. We will check calcium and magnesium as well. It is of note the patient also was hypocalcemic with a potassium of 7.7. 3. History of hypertension. The patient currently off antihypertensives in view of the sepsis and the risk of becoming hypotensive. 4. Prolonged QT as mentioned above in the setting of hypokalemia and hypocalcemia. 5. Abdominal aortic aneurysm. The patient currently does not have any abdominal pain. This is 6.1 cm with some aortic calcification with a 17 mm long neck without evidence of rupture or leakage. We will treat the patient medically at this time. 6. Sepsis due to urinary tract infection, on IV antibiotic per Dr. Esquivel. Thank you very much, Dr. Esquivel, for allowing me to participate in the care of this patient. Please do not hesitate to contact me for any questions regarding my evaluation. Bi Greco M.D. DR: STEVE JOB#: [id number] CC:
--- NOTE | 2017-04-06 07:53 | Cardiology Report ---
APPROVED REPORT EXAM: Two-dimensional and M-mode echocardiogram with Doppler and color Doppler. INDICATION Left ventricular function M-Mode DIMENSIONS IVSd1.3 (0.7-1.1cm)Left Atrium (MM)3.8 (1.6-4.0cm) LVDd5.8 (3.5-5.6cm)Aortic Root3.7 (2.0-3.7cm) PWd1.3 (0.7-1.1cm)Aortic Cusp Exc.2.0 (1.5-2.0cm) LVDs3.8 (2.5-4.0cm) PWs1.6 cm Normal left ventricular chamber size, systolic function and wall motion. Left ventricular ejection fraction estimated to be 60-65%. No evidence of left ventricular hypertrophy. No evidence of pericardial or pleural effusion. All other cardiac chamber sizes are within normal limits. Focal aortic valve sclerosis with adequate cusp excursion. Thickened mitral valve leaflets with normal excursion. Mild mitral annulus and aortic root calcification. Pulmonic valve not well visualized. Normal tricuspid valve structure. IVC is normal in size and collapsible with respiration. A color flow and spectral Doppler study was performed and revealed: No aortic regurgitation. No mitral regurgitation. Mitral diastolic velocities suggest reduced left ventricular relaxation c/w diastolic dysfunction grade 1. No tricuspid regurgitation.
--- NOTE | 2017-04-06 14:11 | Discharge Summary ---
Discharge Summary Hospital Course Date of Admission Apr 03, 2017 at 20:58 Date of Discharge Apr 05, 2017 at 19:45 Admitting Diagnosis HYPOTENSION, WEAKNESS HPI Baldomero Escobedo is a 61 year old male who was admitted on Apr 03, 2017 at 20: 58 for Hypotension,Weakness Hospital Course [id number] Discharge Discharge Disposition Patient was discharged to Acute care hospital Discharge Diagnoses: June Danielle NP Apr 06, 2017 14:11
[2017-04-06 14:22] LABS: OTHERS PATHOLOGIST COMMENT
--- NOTE | 2017-04-06 22:45 | Discharge Summary 2 SIG ---
DATE OF ADMISSION: 04/03/2017 DATE OF DISCHARGE: 04/05/2017 CONSULTANTS: 1. Bi Greco M.D. 2. Shona Jamison M.D. 3. Stefan Hickey M.D. 4. Clark Tang M.D. BRIEF HOSPITAL COURSE: The patient is a 61-year-old male with history of hypertension, came from home, was brought in by son for complaints of fever for two days with right leg numbness and difficulty urinating. The patient is alert and oriented x4, ambulatory and steady gait. On evaluation at ED, the patient was febrile 101.5 and there was leukocytosis, WBC 26.6. Urinalysis showed pyuria. He had CT of the abdomen and pelvis done that showed 6.1 x 5.6 cm fusiform abdominal aortic aneurysm. There was no evidence of rupture or leakage. Bladder wall was thick and had prominent prostate findings suspicious for cystitis. There was gas bubbles seen within the bladder. He was admitted to telemetry for sepsis and was started on IV vancomycin and cefepime at ED. He was seen by ID specialist. Cefepime was discontinued and was switched to IV Zosyn. Blood cultures showed growth of gram-negative rods. Urine with E. coli. He was given IV hydration with improvement in blood pressure. The patient was having diarrhea. C. difficile was negative. EKG showed prolonged QT. Troponin was mildly elevated. He underwent an echocardiogram which showed ejection fraction of 60% to 65%. CPK was more than 1400, may be result of rhabdomyolysis specially in light of renal failure as creatinine was 3.0. He did not have any chest pain, creatinine improved, and troponin down trended. EKG showed no active ischemia and echocardiogram showed normal left ventricular systolic function. He had a renal ultrasound done that was negative for hydronephrosis. He was eventually transferred to [facility]. FINAL DIAGNOSES: 1. Severe sepsis. 2. Urinary tract infection. 3. Acute diarrhea. 4. Thrombocytopenia. 5. Acute kidney injury. 6. Mild AST elevation. 7. Lactic acidosis. 8. Elevated troponin. 9. Prolonged QT. 10. Abdominal aortic aneurysm. DISPOSITION: The patient was transferred to [facility]. Renea Esquivel M.D. I have been assigned to dictate discharge summary on this account and I was not involved in the patient's management. June Danielle N.P. DR: Kit JOB#: [id number] CC: DESIREE
--- NOTE | 2017-04-16 12:19 | Cardiology Report ---
APPROVED REPORT EKG Measurement Heart [id number] Sinus rhythm with premature atrial complexes Prolonged QT Abnormal ECG
== END 2017-04-05 19:45 | DRG 720 ==
LOC: EMR 19:23 → EDBEDREQ 20:49 → 2E 20:58 → EDBEDREQ 21:08
DX: A41.9 Sepsis, unspecified organism (principal); N17.9 Acute kidney failure, unspecified; E87.2 Acidosis; D69.6 Thrombocytopenia, unspecified; I45.81 Long QT syndrome; N39.0 Urinary tract infection, site not specified; R65.20 Severe sepsis without septic shock; B96.20 Unspecified Escherichia coli [E. coli] as the cause of diseases classified elsewhere; R19.7 Diarrhea, unspecified; I71.4 Abdominal aortic aneurysm, without rupture; D72.829 Elevated white blood cell count, unspecified; R74.8 Abnormal levels of other serum enzymes
CPT/HCPCS: 36415; 71010; 74176; 76775; 80048; 80053; 81003; 82436; 82550; 82553; 83036; 83605; 83690; 83735; 83880; 83930; 83935; 84100; 84133; 84300; 84439; 84484; 84550; 85007; 85025; 87040; 87086; 87181; 87324; 89050; 93005; 93306; 94664; 99285; J8499